=== PATIENT | female | born 1955 | race Two or more races ===

== ENCOUNTER 2017-06-13 13:02 | Inpatient (IN) | payer MEDICAID ==
[~2017-06-13] VITALS: Ht 160 cm; Wt 79.4 kg
[~2017-06-13 13:02] MED LIST: CHLO4LIQ EX; GABA100C9; INSLANTI; INSLISPI; LOSA50TA26; METF-372; PIOG15TA38; PRAVASTATIN; SULF1TAB60 PO
[2017-06-13 14:44] LABS: Basophils # (auto) 0.1 uL; Basophils % (auto) 0.8 % (0.0-2.0); Eosinophils # (auto) 0.2 uL; Eosinophils % (auto) 1.4 % (0.0-7.0); Hemoglobin 13.9 g/dL (12.2-16.2); Lymphocytes # (auto) 3.5 uL; Lymphocytes % (auto) 30.6 % (10.0-50.0); Mean Corpuscular Hemoglobin 31.5 pg (28.0-32.0); Mean Corpuscular Hgb Conc. 33.1 g/dL (32.0-36.0); Mean Corpuscular Volume 95.2 fL (80.0-100.0); Monocytes # (auto) 0.6 uL; Monocytes % (auto) 5.2 % (0.0-12.0); Neutrophils # (auto) 7.1 uL; Nucleated Red Blood Cells % 0.1 %; Platelet Count (auto) 344 10^3/uL (140-450); Red Blood Cells 4.42 10^6/uL (4.0-5.20); Red Cell Distribution Width 12.3 % (11.8-14.3); White Blood Cell 11.4 10^3/uL (4.4-10.8)
[2017-06-13 15:05] LABS: Alanine Aminotransferase 27 U/L (13-56); Albumin 3.5 g/dL (3.4-5.0); Alkaline Phosphatase 109 U/L (45-117); Anion Gap 13 (5-15); Aspartate Aminotransferase 18 U/L (15-37); BUN/Creatinine Ratio 24.3; Bilirubin, Total 0.3 mg/dL (0.2-1.0); Blood Urea Nitrogen 55 mg/dL (7-18); Carbon Dioxide 22 mmol/L (21-32); Chloride 90 mmol/L (98-107); GFR African American 28 mL/min; GFR Non-African American 24 mL/min; Magnesium 2.2 mg/dL (1.6-2.6); Potassium 4.9 mmol/L (3.5-5.1); Sodium 125 mmol/L (136-145); Total Protein 8.7 g/dL (6.4-8.2)
[2017-06-13 15:18] LABS: Glucose 677 mg/dL (74-106)
[2017-06-13] MEDS ORDERED: SODIUM CHLORIDE 0.9% 1,000 ML IV ONE ×2 (15:54→18:15)
[2017-06-13] MEDS ORDERED: cefTRIAXone 1GM/10ml IVPUSH 10 ML IV ONE (16:00)
[2017-06-13 16:14] LABS: Urine Bacteria NONE SEEN /hpf (None Seen); Urine Blood Negative /uL (Negative); Urine Specific Gravity 1.022 (1.001-1.035); Urine WBC 8 /hpf (0 - 5)
[2017-06-13] MEDS ORDERED: InsuLIN REG 1unit/0.01ml Soln (100units/ml) IV ONE (17:15)
[2017-06-13] MEDS ORDERED: OSELTAMIVIR 75 MG CAP PO ONE (17:30)
[2017-06-13] MEDS ORDERED: HYDROcodone-ACET 5/325MG TAB PO PRN (17:30)
[2017-06-13] MEDS ORDERED: DEXTROSE (50%) 50ML SYRG IV PRN (17:30)
[2017-06-13] MEDS ORDERED: MORPHINE SULFATE 4 MG/ML SYR/VIAL IV PRN (17:30)
[2017-06-13] MEDS ORDERED: TEMAZEPAM 15 MG CAP PO PRN (17:30)
[2017-06-13] MEDS ORDERED: MORPHINE SULF INJ 2 MG/ML SYRINGE 1ML IV PRN (17:30)
[2017-06-13] MEDS ORDERED: ACETAMINOPHEN 500 MG TAB PO PRN (17:30)
[2017-06-13] MEDS ORDERED: NITROGLYCERIN 0.4 MG SL TAB SL PRN (17:30)
[2017-06-13] MEDS ORDERED: LACTULOSE 20Gm/30ML SOLN PO PRN (17:30)
[2017-06-13] MEDS ORDERED: LORazepam 0.5 MG TAB PO PRN (17:30)
[2017-06-13] MEDS ORDERED: ALBUTEROL SULF 2.5 MG/0.5ML(0.5%) NEB SOLN NEB PRN (17:30)
[2017-06-13] MEDS: ALBUTEROL SULF 2.5 MG/0.5ML(0.5%) NEB SOLN NEB SCH (18:00)
[2017-06-13] MEDS: ENOXAPARIN SOD 30 MG/0.3 ML SYRINGE SC SCH (18:58)
[2017-06-13] MEDS: PANTOPRAZOLE 40 MG TAB PO SCH (18:58)
[2017-06-13] MEDS: AZITHROMYCIN 500MG/ 250ML 250 ML IV SCH (19:25)
[2017-06-13] MEDS: SODIUM CHLORIDE 0.9% 1,000 ML IV SCH (20:22)
[2017-06-13] MEDS: ACCU-CHEK COMFORT CURVE STRIP VI SCH (20:40)
[2017-06-13] MEDS: InsuLIN REG 1unit/0.01ml Soln (100units/ml) SC SCH (20:48)
[2017-06-14] MEDS: InsuLIN REG 1unit/0.01ml Soln (100units/ml) SC SCH ×6 (00:39→20:46)
[2017-06-14] MEDS: ACCU-CHEK COMFORT CURVE STRIP VI SCH ×6 (00:39→20:39)
[2017-06-14] MEDS: SODIUM CHLORIDE 0.9% 1,000 ML IV SCH ×4 (01:28→20:39)
[2017-06-14 05:48] LABS: Basophils # (auto) 0.1 uL; Basophils % (auto) 0.9 % (0.0-2.0); Eosinophils # (auto) 0.3 uL; Eosinophils % (auto) 2.9 % (0.0-7.0); Hematocrit 33.2 % (36.0-46.0); Hemoglobin 11.2 g/dL (12.2-16.2); Lymphocytes # (auto) 4.9 uL; Lymphocytes % (auto) 49.3 % (10.0-50.0); Mean Corpuscular Hemoglobin 31.4 pg (28.0-32.0); Mean Corpuscular Hgb Conc. 33.8 g/dL (32.0-36.0); Monocytes # (auto) 0.7 uL; Monocytes % (auto) 7.1 % (0.0-12.0); Neutrophils % (auto) 39.8 % (37.0-80.0); Platelet Count (auto) 277 10^3/uL (140-450); Red Blood Cells 3.57 10^6/uL (4.0-5.20)
[2017-06-14] MEDS ORDERED: OSELTAMIVIR 75 MG CAP PO SCH (06:00)
[2017-06-14] MEDS: ALBUTEROL SULF 2.5 MG/0.5ML(0.5%) NEB SOLN NEB SCH ×2 (06:00)
[2017-06-14 06:19] LABS: Alanine Aminotransferase 19 U/L (13-56); Albumin 2.6 g/dL (3.4-5.0); Alkaline Phosphatase 76 U/L (45-117); Anion Gap 9 (5-15); Aspartate Aminotransferase 14 U/L (15-37); BUN/Creatinine Ratio 22.9; Bilirubin, Total 0.3 mg/dL (0.2-1.0); Blood Urea Nitrogen 36 mg/dL (7-18); Calcium 8.2 mg/dL (8.5-10.1); Carbon Dioxide 22 mmol/L (21-32); Chloride 108 mmol/L (98-107); Cholesterol 130 mg/dL (< 200); GFR African American 43 mL/min; GFR Non-African American 36 mL/min; Glucose 205 mg/dL (74-106); HDL Cholesterol 22 mg/dL (40-59); Potassium 3.8 mmol/L (3.5-5.1); Sodium 139 mmol/L (136-145); Total Protein 6.5 g/dL (6.4-8.2); Triglycerides 520 mg/dL (< 150)
[2017-06-14] MEDS: ONDANSETRON HCL 4 MG/2 ML VIAL IV PRN (08:13)
[2017-06-14 08:42] VITALS: BP 135/66
[2017-06-14] MEDS: cefTRIAXone 1GM/10ml IVPUSH 10 ML IV SCH (09:24)
[2017-06-14] MEDS: ENOXAPARIN SOD 30 MG/0.3 ML SYRINGE SC SCH (09:34)
[2017-06-14] MEDS: AZITHROMYCIN 500MG/ 250ML 250 ML IV SCH (09:34)
[2017-06-14] MEDS: PANTOPRAZOLE 40 MG TAB PO SCH (09:34)
[2017-06-14 16:48] LABS: % Iron Saturation 33.9 % (15-50)
[2017-06-14 22:00] VITALS: BP 152/75
[2017-06-15] MEDS: ACCU-CHEK COMFORT CURVE STRIP VI SCH ×6 (00:35→22:06)
[2017-06-15] MEDS: InsuLIN REG 1unit/0.01ml Soln (100units/ml) SC SCH ×5 (00:36→16:05)
[2017-06-15] MEDS: SODIUM CHLORIDE 0.9% 1,000 ML IV SCH ×2 (03:53→18:11)
[2017-06-15 05:11] VITALS: BP 152/76
[2017-06-15 06:05] LABS: Basophils # (auto) 0.1 uL; Basophils % (auto) 0.7 % (0.0-2.0); Eosinophils # (auto) 0.3 uL; Eosinophils % (auto) 2.9 % (0.0-7.0); Hematocrit 31.7 % (36.0-46.0); Hemoglobin 10.8 g/dL (12.2-16.2); Lymphocytes # (auto) 4.2 uL; Lymphocytes % (auto) 45.1 % (10.0-50.0); Mean Corpuscular Hemoglobin 32.2 pg (28.0-32.0); Mean Corpuscular Hgb Conc. 34.2 g/dL (32.0-36.0); Mean Corpuscular Volume 94.1 fL (80.0-100.0); Monocytes # (auto) 0.7 uL; Monocytes % (auto) 7.2 % (0.0-12.0); Neutrophils # (auto) 4.1 uL; Neutrophils % (auto) 44.1 % (37.0-80.0); Nucleated Red Blood Cells % 0.1 %; Platelet Count (auto) 254 10^3/uL (140-450); Red Blood Cells 3.37 10^6/uL (4.0-5.20); Red Cell Distribution Width 12.3 % (11.8-14.3); White Blood Cell 9.2 10^3/uL (4.4-10.8)
[2017-06-15 06:27] LABS: Albumin 2.5 g/dL (3.4-5.0); BUN/Creatinine Ratio 16.4; Bilirubin, Total 0.2 mg/dL (0.2-1.0); Calcium 7.9 mg/dL (8.5-10.1); Magnesium 1.6 mg/dL (1.6-2.6); Phosphorus 3.1 mg/dL (2.5-4.90); Potassium 4.3 mmol/L (3.5-5.1); Total Protein 6.2 g/dL (6.4-8.2)
[2017-06-15 07:57] VITALS: BP 137/74
[2017-06-15 08:00] VITALS: BP 137/74
[2017-06-15] MEDS: PANTOPRAZOLE 40 MG TAB PO SCH (09:38)
[2017-06-15] MEDS: AZITHROMYCIN 500MG/ 250ML 250 ML IV SCH (09:39)
[2017-06-15] MEDS: cefTRIAXone 1GM/10ml IVPUSH 10 ML IV SCH (09:39)
[2017-06-15] MEDS ORDERED: AZITHROMYCIN 250 MG TAB PO SCH (10:00)
[2017-06-15] MEDS ORDERED: ENOXAPARIN SOD 40 MG/0.4 ML SYRINGE SC SCH (10:00)
[2017-06-15 11:55] VITALS: BP 159/71
[2017-06-15 17:10] VITALS: BP 152/66
[2017-06-15] MEDS ORDERED: DEXTROSE (50%) 50ML SYRG IV PRN (17:15)
[2017-06-15 22:00] VITALS: BP 154/74
[2017-06-15] MEDS ORDERED: InsuLIN REG 1unit/0.01ml Soln (100units/ml) SC SCH (22:00)
[2017-06-15] MEDS: INSULIN DETEMIR(LEVEMIR) 1unit/0.01ml Soln (100units/ml) SC SCH (22:07)
[2017-06-16] VITALS (7 sets, daily range): BP systolic 148–158; BP diastolic 61–78
[2017-06-16] MEDS: SODIUM CHLORIDE 0.9% 1,000 ML IV SCH ×2 (03:15→15:14)
[2017-06-16 06:42] LABS: BUN/Creatinine Ratio 15.6; Calcium 8.2 mg/dL (8.5-10.1); Potassium 4.3 mmol/L (3.5-5.1)
[2017-06-16] MEDS: InsuLIN REG 1unit/0.01ml Soln (100units/ml) SC SCH ×3 (06:50→17:38)
[2017-06-16] MEDS: INSULIN DETEMIR(LEVEMIR) 1unit/0.01ml Soln (100units/ml) SC SCH (06:50)
[2017-06-16] MEDS: ACCU-CHEK COMFORT CURVE STRIP VI SCH ×3 (06:50→17:38)
[2017-06-16] MEDS: ONDANSETRON HCL 4 MG/2 ML VIAL IV PRN (08:49)
[2017-06-16] MEDS ORDERED: LEVOFLOXACIN 500 MG TAB PO SCH (10:00)
[2017-06-16] MEDS ORDERED: AZITHROMYCIN 250 MG TAB PO SCH (10:00)
[2017-06-16] MEDS: PANTOPRAZOLE 40 MG TAB PO SCH (11:15)
== END 2017-06-16 18:00 | disposition home or self-care (01) | DRG 139 ==
LOC: ER 13:17 → TELE 13:18 → TELE-EAST 06-14 16:44 → EAST 06-15 17:19
PROVIDERS: ADMIT Internal Medicine; ATTEND Internal Medicine
DX: J18.9 Pneumonia, unspecified organism (principal); N17.0 Acute kidney failure with tubular necrosis; E11.21 Type 2 diabetes mellitus with diabetic nephropathy; D68.59 Other primary thrombophilia; E11.65 Type 2 diabetes mellitus with hyperglycemia; E11.22 Type 2 diabetes mellitus with diabetic chronic kidney disease; I48.91 Unspecified atrial fibrillation; I12.9 Hypertensive chronic kidney disease with stage 1 through stage 4 chronic kidney disease, or unspecified chronic kidney disease; R55 Syncope and collapse; N39.0 Urinary tract infection, site not specified; E86.0 Dehydration; B96.20 Unspecified Escherichia coli [E. coli] as the cause of diseases classified elsewhere; E66.9 Obesity, unspecified; R91.1 Solitary pulmonary nodule; E87.1 Hypo-osmolality and hyponatremia; E78.5 Hyperlipidemia, unspecified; N18.9 Chronic kidney disease, unspecified; Z88.8 Allergy status to other drugs, medicaments and biological substances; Z82.3 Family history of stroke; Z82.49 Family history of ischemic heart disease and other diseases of the circulatory system; Z83.3 Family history of diabetes mellitus; Z68.31 Body mass index [BMI] 31.0-31.9, adult
CPT/HCPCS: 36415; 71020; 71046; 71250; 80048; 80053; 80061; 81001; 82270; 82962; 83036; 83540; 83550; 83735; 84100; 84443; 84484; 85025; 87040; 87086; 87088; 87186; 87400; 93005; 94640; 96361; 96372; 96374; 96375; 96376; J1815; J2405

== ENCOUNTER 2019-02-07 12:33 | Emergency (ER) | payer MEDICAID ==
[~2019-02-07] VITALS: Ht 160 cm; Wt 83.9 kg
[2019-02-07] MEDS ORDERED: SODIUM CHLORIDE 0.9% 1,000 ML IVB ONE (13:40)
[2019-02-07] MEDS: ONDANSETRON HCL 4 MG/2 ML VIAL IV ONE ×2 (13:45→16:21)
[2019-02-07] MEDS ORDERED: MORPHINE SULFATE 4 MG/ML SYR/VIAL IV ONE (13:45)
[2019-02-07 14:09] LABS: Basophils # (auto) 0.1 uL; Basophils % (auto) 0.9 % (0.0-2.0); Eosinophils # (auto) 0.2 uL; Eosinophils % (auto) 2.7 % (0.0-7.0); Hematocrit 35.8 % (36.0-46.0); Lymphocytes # (auto) 2.3 uL; Lymphocytes % (auto) 24.8 % (10.0-50.0); Mean Corpuscular Hemoglobin 32.6 pg (28.0-32.0); Mean Corpuscular Hgb Conc. 33.4 g/dL (32.0-36.0); Mean Corpuscular Volume 97.5 fL (80.0-100.0); Monocytes # (auto) 0.8 uL; Monocytes % (auto) 9.2 % (0.0-12.0); Neutrophils # (auto) 5.7 uL; Neutrophils % (auto) 62.4 % (37.0-80.0); Platelet Count (auto) 269 10^3/uL (140-450); Red Blood Cells 3.67 10^6/uL (4.0-5.20); Red Cell Distribution Width 13.3 % (11.8-14.3); White Blood Cell 9.1 10^3/uL (4.4-10.8)
[2019-02-07 14:24] LABS: Albumin 2.6 g/dL (3.4-5.0); Calcium 8.4 mg/dL (8.5-10.1); Potassium 4.7 mmol/L (3.5-5.1)
[2019-02-07 14:28] LABS: Bilirubin, Total 0.2 mg/dL (0.2-1.0); Total Protein 7.7 g/dL (6.4-8.2)
[2019-02-07] MEDS ORDERED: ONDANSETRON HCL 4 MG/2 ML VIAL ONE (17:13)
[2019-02-07] MEDS ORDERED: HYDROcodone-ACET 10/325MG TAB PO ONE (17:15)
[2019-02-07 17:47] VITALS: BP 120/78
[2019-02-07 18:15] LABS: Urine Bacteria NONE SEEN /hpf (None Seen); Urine Blood TRACE /uL (Negative); Urine Specific Gravity 1.014 (1.001-1.035); Urine WBC 9 /hpf (0 - 5)
[2019-02-07] MEDS ORDERED: HYDROcodone-ACET 5/325MG TAB PO ONE (19:15)
== END 2019-02-07 19:08 | disposition home or self-care (01) ==
LOC: ER 12:33
DX: N39.0 Urinary tract infection, site not specified (principal); I48.91 Unspecified atrial fibrillation; E78.5 Hyperlipidemia, unspecified; E11.22 Type 2 diabetes mellitus with diabetic chronic kidney disease; I12.9 Hypertensive chronic kidney disease with stage 1 through stage 4 chronic kidney disease, or unspecified chronic kidney disease; N18.9 Chronic kidney disease, unspecified; Z88.6 Allergy status to analgesic agent; Z88.8 Allergy status to other drugs, medicaments and biological substances; Z79.4 Long term (current) use of insulin; Z79.899 Other long term (current) drug therapy
CPT/HCPCS: 36415; 80053; 81001; 85025; 94761; 96361; 96374; 96375; 99284; J2270; J2405; J7030